=== PATIENT | female | born 1990 | race Caucasian/White ===

== ENCOUNTER 2017-03-13 06:52 | Emergency (ER) | payer SELFPAY ==
[~2017-03-13] VITALS: Ht 167.6 cm; Wt 99.8 kg
[2017-03-13] MEDS ORDERED: Ipratropium 0.02% Inh Soln 2.5ml UD ONE (07:09)
[2017-03-13] MEDS ORDERED: Albuterol ud Inhalation ONE (07:09)
[2017-03-13 07:10] VITALS: BP 133/78
[2017-03-13] MEDS ORDERED: Ipratropium 0.02% Inh Soln 2.5ml UD HHN ONE (07:15)
[2017-03-13] MEDS ORDERED: Albuterol ud Inhalation HHN ONE ×2 (07:15→08:45)
[2017-03-13] MEDS ORDERED: Ketorolac 30mg Inj IV ONE (07:15)
--- NOTE | 2017-03-13 07:17 | Emergency Room Report ---
History of Present Illness General Chief Complaint: Chest Pain Present Illness HPI The patient presents with 3/2 days of cough, wheezing and chest pain. She's also had fevers and chills. She is coughing up green phlegm. This morning she had some nausea when she was coughing. The chest pain is 6/10 and burning in anterior. This worsened when she coughs. Was improved with TheraFlu and Mucinex that she took. She had a mild episode of wheezing. At that time there is no fever and productive cough. It went away on its own. She denies asthma. Chills he has diarrhea that's peoples in collar. There's no blood. Her last menses was 2 months ago. She doesn't believe she is . No h/o blood clots. 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 Now: No : 0 Para: 0 Reviewed Nursing Documentation: PMH: Agreed, PSxH: Agreed Review of Systems All Other Systems: negative except mentioned in HPI Physical Exam Vital Signs Date Time Temp Pulse Resp B/P Pulse Ox O2 Delivery O2 Flow Rate FiO2 03/13/17 07:02 100.9 117 18 147/93 97 Room Air Sp02 EP Interpretation: reviewed, abnormal - low as interpreted by me General Appearance: well appearing, no apparent distress, GCS 15 Head: normocephalic Eyes: bilateral eye PERRL, bilateral eye normal inspection ENT: moist mucus membranes Neck: supple Respiratory: wheezing, expiration, inspiration, other - mild CWT Cardiovascular #1: no edema, tachycardia Cardiovascular #2: 2+ radial (R) Gastrointestinal: normal inspection, normal bowel sounds, non tender, no mass, non-distended Musculoskeletal: back normal, gait/station normal, normal range of motion, no calf tenderness Neurologic: alert, oriented x3 Skin: normal inspection, warm/dry Medical Decision Making Diagnostic Impression: Primary Impression: New onset asthmatic bronchitis Additional Impression: Chest pain Qualified Codes: R07.1 - Chest pain on breathing ER Course Patient presents with cough, wheezing and productive phlegm. She also has chest pain. Differential includes pneumonia, bronchitis, bronchospasm, pulmonary embolus amongst others. Evaluation will be with labs including lactate and d-dimer, EKG and chest x-ray. She'll be treated with bronchodilators, IV hydration and Toradol. It is disconcerting that she's hypoxemic electively and has tachycardia. D dimer negative. Patient improved but still with wheezing. Repeat albuterol. Solumedrol IV. Hypoxia resolved with breathing treatments. As h/o purulent phlegm and significant lung infection, will treat with antibiotics. (Had she not improved , consideration for admission.) Improved. Chest pain mostly with cough. Patient stable for outpatient observation and treatment. Laboratory Tests Test 03/13/17 07:15 03/13/17 08:00 White Blood Count 8.7 K/UL (4.8-10.8) Red Blood Count 4.89 M/UL (4.20-5.40) Hemoglobin 12.4 G/DL (12.0-16.0) Hematocrit 38.4 % (37.0-47.0) Mean Corpuscular Volume 78 FL (80-99) L Mean Corpuscular Hemoglobin 25.4 PG (27.0-31.0) L Mean Corpuscular Hemoglobin Concent 32.3 G/DL (32.0-36.0) Red Cell Distribution Width 14.4 % (11.6-14.8) Platelet Count 291 K/UL (150-450) Mean Platelet Volume 7.5 FL (6.5-10.1) Neutrophils (%) (Auto) 65.3 % (45.0-75.0) Lymphocytes (%) (Auto) 20.0 % (20.0-45.0) Monocytes (%) (Auto) 11.1 % (1.0-10.0) H Eosinophils (%) (Auto) 2.8 % (0.0-3.0) Basophils (%) (Auto) 0.7 % (0.0-2.0) Prothrombin Time 10.7 SEC (9.30-11.50) Prothrombin Time INR 1.1 (0.9-1.1) PTT 29 SEC (23-33) D-Dimer 465 ng/mL (<500) Sodium Level 137 mEQ/L (135-145) Potassium Level 3.8 mEQ/L (3.4-4.9) Chloride Level 96 mEQ/L (98-107) L Carbon Dioxide Level 24 mEQ/L (20-30) Anion Gap 17 (5-15) H Blood Urea Nitrogen 9 mg/dL (7-23) Creatinine 0.8 mg/dL (0.5-0.9) Estimate Glomerular Filtration Rate > 60 mL/min (>60) Glucose Level 116 mg/dL (74-106) H Lactic Acid Level 1.30 mmol/L (0.66-2.22) Calcium Level 9.2 mg/dL (8.6-10.2) Total Bilirubin 0.4 mg/dL (0.0-1.2) Aspartate Amino Transferase (AST) 40 U/L (5-40) Alanine Aminotransferase (ALT) 67 U/L (3-33) H Alkaline Phosphatase 97 U/L (35-104) Total Protein 8.0 g/dL (6.6-8.7) Albumin 4.5 g/dL (3.5-5.2) Globulin 3.5 g/dL Albumin/Globulin Ratio 1.2 (1.0-2.7) Urine Color Pale yellow Urine Appearance Clear Urine pH 6.5 (4.5-8.0) Urine Specific [place] 1.010 (1.005-1.035) Urine Protein Negative (NEGATIVE) Urine Glucose (UA) Negative (NEGATIVE) Urine Ketones Negative (NEGATIVE) Urine Occult Blood 3+ (NEGATIVE) H Urine Nitrite Negative (NEGATIVE) Urine Bilirubin Negative (NEGATIVE) Urine Urobilinogen Normal MG/DL (0.0-1.0) Urine Leukocyte Esterase Negative (NEGATIVE) Urine RBC 2-4 /HPF (0 - 2) H Urine WBC 0-2 /HPF (0 - 2) Urine Squamous Epithelial Cells Few /LPF (NONE/OCC) Urine Bacteria Few /HPF (NONE) EKG Diagnostic Results Rate: normal Rhythm: NSR ST Segments: no acute changes Rhythm Strip Diag. Results EP Interpretation: yes Rhythm: NSR, no PVC's, no ectopy, other Chest X-Ray Diagnostic Results EP Interpretation: Yes Findings: no consolidation, no effusion, no pneumothorax, no acute cardiopulmonary disease Number of Views: 1 Last Vital Signs Date Time Temp Pulse Resp B/P Pulse Ox O2 Delivery O2 Flow Rate FiO2 03/13/17 10:53 100 19 126/74 100 Room Air 03/13/17 07:10 99.8 Status: improved Disposition: HOME, SELF-CARE Condition: Improved Scripts Guaifenesin/Codeine Phos* (ROBITUSSIN AC*) 118 Ml Liquid 5 ML ORAL Q6H Y for For Cough, #90 ML 0 Refills Prov: Alex Thao M.D. 03/13/17 Levofloxacin* (LEVAQUIN*) 500 Mg Tablet 500 MG ORAL DAILY, #7 TAB Prov: Alex Thao M.D. 03/13/17 Prednisone* (PREDNISONE*) 20 Mg Tablet 20 MG ORAL DAILY for 5 Days, #5 TAB 0 Refills Prov: Alex Thao M.D. 03/13/17 Albuterol Sulfate* (ALBUTEROL SULFATE MDI*) 8.5 Gm Hfa.aer.ad 2 PUFF INH Q6H, #1 EA 0 Refills Prov: Alex Thao M.D. 03/13/17 Alex Thao M.D. March 13, 2017 07:17
[2017-03-13 07:40] LABS: BASOPHILS % (AUTO) 0.7 % (0.0-2.0); EOSINOPHILS % (AUTO) 2.8 % (0.0-3.0); MEAN CORPUSCULAR HEMOGLOBIN 25.4 PG (27.0-31.0); MEAN CORPUSCULAR HGB CONC 32.3 G/DL (32.0-36.0); MEAN CORPUSCULAR VOLUME 78 FL (80-99); MEAN PLATELET VOLUME 7.5 FL (6.5-10.1); MONOCYTES % (AUTO) 11.1 % (1.0-10.0); NEUTROPHILS % (AUTO) 65.3 % (45.0-75.0); PLATELET COUNT 291 K/UL (150-450); RED BLOOD COUNT 4.89 M/UL (4.20-5.40); RED CELL DISTRIBUTION WIDTH 14.4 % (11.6-14.8); WHITE BLOOD COUNT 8.7 K/UL (4.8-10.8)
[2017-03-13 07:48] LABS: INR 1.1 (0.9-1.1); PROTHROMBIN TIME 10.7 SEC (9.30-11.50)
[2017-03-13 07:49] LABS: ALANINE AMINOTRANSFERASE 67 U/L (3-33); ALBUMIN/GLOBULIN RATIO 1.2 (1.0-2.7); ANION GAP 17 (5-15); ASPARTATE AMINO TRANSFERASE 40 U/L (5-40); CALCIUM 9.2 mg/dL (8.6-10.2); CARBON DIOXIDE 24 mEQ/L (20-30); CHLORIDE 96 mEQ/L (98-107); CREATININE 0.8 mg/dL (0.5-0.9); GLOMERULAR FILTRATION RATE > 60 mL/min (>60); HEMOLYSIS 3; POTASSIUM 3.8 mEQ/L (3.4-4.9); SODIUM 137 mEQ/L (135-145)
[2017-03-13] MEDS ORDERED: fentaNYL 100 mcg/2 mL IV ONE (08:00)
[2017-03-13 08:09] LABS: APPEARANCE,URINE CLEAR; KETONES,URINE NEGATIVE (NEGATIVE); LEUKOCYTE ESTERASE ,URINE NEGATIVE (NEGATIVE); NITRITE,URINE NEGATIVE (NEGATIVE); PH,URINE 6.5 (4.5-8.0); PROTEIN,URINE NEGATIVE (NEGATIVE); UROBILINOGEN,URINE NORMAL MG/DL (0.0-1.0)
[2017-03-13 08:21] LABS: BACTERIA,URINE FEW /HPF; SQUAMOUS EPITHELIAL CELL,UR FEW /LPF (NONE/OCC); WBC,URINE 0-2 /HPF (0 - 2)
[2017-03-13] MEDS ORDERED: Solu-MEDROL 125mg Inj IVP ONE (09:45)
[2017-03-13] MEDS ORDERED: Levofloxacin 500mg tab ORAL ONE (09:45)
[2017-03-13] MEDS ORDERED: PREDNISONE20 MG ORAL (10:43)
[2017-03-13] MEDS ORDERED: ALBUTEROL SULF8.5 GM INH (10:43)
[2017-03-13] MEDS ORDERED: GUAIFENESIN-CO118 M1 ORAL (10:43)
[2017-03-13] MEDS ORDERED: LEVAQUIN500 MG ORAL (10:43)
[2017-03-13 10:53] VITALS: BP 126/74
--- NOTE | 2017-03-14 07:51 | Cardiology Report ---
APPROVED REPORT EKG Measurement Heart [id number] OR [id number] Sinus tachycardia Otherwise normal ECG
--- NOTE | 2017-03-14 09:20 | Diagnostic Imaging Report ---
Indication: Chest Pain Comparison: None A single view chest radiograph was obtained. Findings: Cardiomediastinal appearance is within normal limits for age. Pulmonary vascularity is appropriate. The diaphragmatic contour is smooth and costophrenic angles are sharp. No pleural effusions are identified. The bones are unremarkable. Impression: No acute findings
== END 2017-03-13 10:55 | disposition home or self-care (01) ==
LOC: EMR 08:43
DX: J45.909 Unspecified asthma, uncomplicated (principal); R07.1 Chest pain on breathing; R19.7 Diarrhea, unspecified; R11.0 Nausea; Z82.49 Family history of ischemic heart disease and other diseases of the circulatory system
CPT/HCPCS: 36415; 71010; 80053; 81003; 83605; 85025; 85379; 85610; 85730; 93005; 94640; 94664; 96360; 96374; 99284; J1885; J2930; J3010